=== PATIENT | female | born 1945 | race Caucasian/White ===

== ENCOUNTER → 2022-01-05 | Outpatient (CLI) | payer MEDICARE ==
[2022-01-05 09:24] VITALS: BP 153/76; PULSE 61; RESP 16; TEMP 97.8
--- NOTE | 2022-01-05 10:03 | P.GSHP ---
History of Present Illness H&P Date: 01/05/22 Chief Complaint: retraction of the nipple Sharon is a 76 year old white female seen in consultation for Dr. Galloway regarding left nipple retraction. She had a bilateral mammogram on 07-28-21 which was benign BIRADS 2. She states she notes an aching snesation in the left breast and at those times her nipple pulls in. She has not noted any lumps or masses in her breast. Also complains of some intermittent stinging sensation in the medial aspect of the left breast. She has not noted any nipple discharge. She has not have any retraction on the right nipple. Caffiene: 3 cups coffee/day; drinks tea nicotine: none chocolate: daily BCP: 3 years stopped in your 20's Family history: 1 of 14 children sister: ovarian cancer Hormonal History: menarche: 12 breast fed: no, age at first : 19 menopause: 48 Surgical History: tubaligation bladder suspencsion bilateral total knee total hysterectomy done for rectal prolapse surgery for rectal prolapse bilateral shoulder Medical History: high cholesterol HTN heart burn jumpy legs prior diabetic Social History: nicotine: none alcohol: beer weekly drugs: none - Constitutional Constitutional: Denies chills, Denies fever - EENT Eyes: denies blurred vision, denies pain Ears: deny: decreased hearing, tinnitus Ears, nose, mouth and throat: Denies headache, Denies sore throat - Breasts Breasts: bilateral: as per HPI - Cardiovascular Cardiovascular: Denies chest pain, Denies shortness of breath - Respiratory Respiratory: Denies cough, Denies 7 - Gastrointestinal Gastrointestinal: Reports as per HPI, Denies abdominal pain, Denies diarrhea, Denies nausea, Denies vomiting - Genitourinary (Female) Genitourinary: Denies dysuria, Denies hematuria - Menstruation Menstruation: Reports post hysterectomy - Musculoskeletal Musculoskeletal: Reports myalgias - Integumentary Integumentary: Denies pruritus, Denies rash - Neurological Neurological: Denies numbness, Denies weakness - Psychiatric Psychiatric: Denies anxiety, Denies depression - Endocrine Endocrine: Reports as per HPI - Hematologic/Lymphatic Hematologic/Lymphatic: Reports as per HPI - Allergic/Immunologic Allergic/Immunologic: Reports as per HPI Past Medical History Past Medical History: Diabetes Mellitus, Hyperlipidemia, Hypertension, Musculoskeletal Disorder, Osteoarthritis (OA) Additional Past Medical History / Comment(s): STATES NO LONGER DIABETIC-NO DIABETIC MEDS FOR 1 YEAR. STATES SPURS, ARTHRITIS AND TORN TENDON LEFT SHOULDER. History of Any Multi-Drug Resistant Organisms: None Reported Past Surgical History: Bladder Surgery, Hysterectomy, Joint Replacement, Orthopedic Surgery, Tubal Ligation Additional Past Surgical History / Comment(s): PRUDENCE TOTAL KNEES, RIGHT ROTATOR CUFF, BLADDER SUSPENSION. Past Anesthesia/Blood Transfusion Reactions: No Reported Reaction Past Psychological History: No Psychological Hx Reported Smoking Status: Former smoker Past Alcohol Use History: Occasional Additional Past Alcohol Use History / Comment(s): SMOKED FOR 1 AND 1/2 YEARS - OUT OF [employer] LESS THAN A PPD. Past Drug Use History: None Reported - Past Family History Mother Family Medical History: No Reported History Medications and Allergies Home Medications Medication Instructions Recorded Confirmed Type Aspirin EC [Ecotrin] 81 mg PO DAILY 05/11/15 01/05/22 History Atorvastatin [Lipitor] 40 mg PO HS 05/11/15 01/05/22 History Benazepril [Lotensin] 10 mg PO BID 05/11/15 01/05/22 History Protegra Vitamin Supplement 1 tab PO DAILY 05/11/15 01/05/22 History Cholecalciferol [Vitamin D3 (25 25 mcg PO DAILY 01/05/22 01/05/22 History Mcg = 1000 Iu)] Inulin/Chromium Picolinate [Fiber 1 tab PO DAILY 01/05/22 01/05/22 History Gummies Chew] Omeprazole 20 mg PO DAILY 01/05/22 01/05/22 History rOPINIRole HCL [Requip] 0.25 mg PO HS 01/05/22 01/05/22 History Allergies Allergy/AdvReac Type Severity Reaction Status Date / Time No Known Allergies Allergy Verified 01/05/22 09:25 Surgical - Exam Vital Signs Temp Pulse Resp BP Pulse Ox 97.8 F 61 16 153/76 98 01/05/22 09:21 01/05/22 09:21 01/05/22 09:21 01/05/22 09:21 01/05/22 09:21 BMI: 29.2 - General moderate distress - Neck trachea midline - Respiratory normal respiratory effort - Cardiovascular Rhythm: regular Heart Sounds: normal: S1, S2 - Abdomen Abdomen: soft, non tender, no guarding, no rigid, no rebound - Integumentary no rash, no abnormal pigmentation - Neurologic no disoriented, no combative - Musculoskeletal normal gait, normal posture - Psychiatric oriented to time, oriented to person, oriented to place, speech is normal, memory intact Breast Exam: BRA: 38C Inspection: Left nipple minimal retraction when patient flexes her pect muscles but the retraction resolves; bilateral grade 2/3 ptosis Palpation: Right breast: Multiple positional exam fibrocystic changes no dominant masses or nodules of concern Right axilla: No adenopathy of concern Left breast: Multi-positional exam fibrocystic changes, no dominant masses or nodules of concern and the nipple areolar area, the nipple retraction resolves Left axilla: No adenopathy of concern Results Mammogram results reviewed, ultrasound results did not show any lesions of concern in the left breast particular attention to the area posterior to the nipple areolar complex. Reviewed with Dr. Lang. Assessment and Plan Assessment: Impression: high cholesterol HTN heart burn jumpy legs prior diabetic Intermittent left nipple retraction No lesions on physical exam or radiographically which weren't biopsied Plan: Close surveillance of breast Bilateral mammogram in July 2022 with exam at that time Patient to follow up sooner any questions or concerns Cc: Dr. Galloway
== END ==
LOC: WWCWWP 09:19
PROVIDERS: ATTEND Surgery
DX: N64.53 Retraction of nipple (principal); K21.9 Gastro-esophageal reflux disease without esophagitis; E11.9 Type 2 diabetes mellitus without complications; E78.5 Hyperlipidemia, unspecified; I10 Essential (primary) hypertension; M19.90 Unspecified osteoarthritis, unspecified site; Z87.891 Personal history of nicotine dependence; E78.00 Pure hypercholesterolemia, unspecified